=== PATIENT | male | born 1970 | race Caucasian/White ===

== ENCOUNTER 2023-10-17 17:41 | Emergency (ER) | payer OTHER, SELFPAY ==
[2023-10-17 17:50] VITALS: BP 144/89; PULSE 74; RESP 16; TEMP 36.8; O2SAT 99
[2023-10-17] MEDS: TETRACAINE HCL 0.5% OPHTH SOLN 4 ML BTL LEFT EYE (18:17)
--- NOTE | 2023-10-17 18:17 | ED.EYEPROB ---
HPI - Eye Problem General Chief complaint: Eye Problems Stated complaint: FB left eye Time Seen by Provider: 10/17/23 18:20 Source: patient and RN notes reviewed Mode of arrival: ambulatory Limitations: no limitations History of Present Illness HPI Narrative: 53-year-old male presents with concern for left eye irritation. Reports he something off a shelf and a bag of concrete powder fell and he got from his eye. He reports he washed his eye out. Reports this happened about 4.5 hours ago. He denies vision changes he reports left eye irritation MD chief complaint: eye pain Related Data Home Medications Medication Instructions Recorded Confirmed hyaluronate sodium, stabilized 88 intra-articular 10/17/23 mg/4 mL intra-articular syringe (Monovisc) Allergies Allergy/AdvReac Type Severity Reaction Status Date / Time No Known Allergies Allergy Verified 10/17/23 17:43 Review of Systems Review of Systems: CONSTITUTIONAL: Denies malaise, chills, sweats, or fever. EYES: Denies visual changes. Reports left eye redness, irritation. Denies discharge. ENT: Denies rhinorrhea, congestion, sinus pain, otalgia or sore throat. SKIN: Denies rash or itching. NEUROLOGIC: Denies numbness, weakness, or headache. PSYCHIATRIC: Denies anxiety or depression. All systems reviewed & are unremarkable except as noted in HPI and below PMFSH Past Medical History Medical History BMI 30.0-30.9,adult BMI 31.0-31.9,adult BMI 33.0-33.9,adult Hand arthritis Surgical History Surgical History History of knee surgery right knee meniscus Family History Family History Grandparent Family history of malignant neoplasm Mother Family history of diabetes mellitus in first degree relative Diabetes mellitus Father Diabetes mellitus Cerebrovascular accident Acute myocardial infarction Sibling COVID-19 Social History Social History Smoking status: Never smoker Second hand tobacco smoke exposure: Yes Alcohol intake: current Substance use: never Substance use type: does not use Lack of Transportation: No Lack of Food: Never True Current Housing: I Have Housing Concerned About Future Housing: No Difficulty Paying Gas/Electric Bills: No Difficulty Paying for Meds: No Currently Unemployed: No Education: High School Diploma/GED Difficulty w/ Childcare or Family Care: No Living arrangements: with family Occupation/Education: occupation Additional occupation/education comments: [employer] Gender identity (if verbalized by the patient): Male Comments At time of signature, agree with nursing past medical, surgical, social and family history. There is no relevant family history pertinent to the presenting complaint Exam Narrative: GENERAL: Well-appearing, well-nourished, and in no acute distress. HEAD: Normocephalic, atraumatic. EYES: PERRLA, sclera clear, and EOMI. No nystagmus. Left conjunctivae clear, sclera injected, pinpoint corneal abrasion noted upon Wood's lamp exam, see note. Upper and lower eyelid unremarkable, no periorbital edema noted ENT: Nares clear, turbinates pink, no rhinorrhea or epistaxis. Mucous membranes moist. TM pearly giron with sharp light reflex bilaterally; no tragal tenderness. NECK: Supple. CHEST: No respiratory distress. Speaks in full sentences. HEART: Regular rate and rhythm. SKIN: Warm, dry, no visible rash. NEURO: Alert and oriented x3. PSYCH: Normal mood and affect Course Course Emergency Course: Exam findings discussed with patient, due to the nature of the patient's injury I recommended he follow up with Ophthalmology particularly if his symptoms change in any way or if they are not improving. Patient is aware of diagnosis, understands and a
[2023-10-17] MEDS: FLUORESCEIN SOD 1 MG/STRIP LEFT EYE (18:18)
[2023-10-17] MEDS: DACRIOSE EYE IRRIGATION 118 ML BOTTLE LEFT EYE (18:18)
== END 2023-10-17 18:35 | disposition home or self-care (01) ==
PROVIDERS: Emergency Provider Nurse Practitioner; PCP Family Medicine
DX: S05.02XA Injury of conjunctiva and corneal abrasion without foreign body, left eye, initial encounter (principal); X58.XXXA Exposure to other specified factors, initial encounter
CPT/HCPCS: 99213; A9270; G0463

== ENCOUNTER 2025-05-26 08:22 | Emergency (ER) | payer OTHER, SELFPAY ==
[2025-05-26 08:32] VITALS: BP 137/84; PULSE 101; RESP 18; TEMP 36.9; O2SAT 97
--- NOTE | 2025-05-26 08:48 | ED.URI ---
HPI - URI/Sore Throat General Chief Complaint: Upper Respiratory Infection Stated Complaint: fever/cough/head ache Time Seen by Provider: 05/26/25 08:44 Source: patient and RN notes reviewed Mode of arrival: ambulatory Limitations: no limitations History of Present Illness HPI Narrative: 55-year-old male patient presents today complaining of cough, headache, and fever up to 101 since yesterday. Denies sore throat, ear pain, shortness of breath. He has been taking ibuprofen with some improvement. is in sick for the past week and was placed on antibiotics yesterday by PCP. Course of cefdinir also called in for patient for his symptoms. No history of asthma or COPD. Related Data Home Medications ?Medication ?Instructions ?Recorded ?Confirmed ?Last Taken ?Type cefdinir 300 mg capsule mg 05/26/25 Unknown History Allergies Allergy/AdvReac Type Severity Reaction Status Date / Time No Known Allergies Allergy Verified 05/26/25 08:33 [facility] Past Medical History Medical History BMI 31.0-31.9,adult Hand arthritis BMI 33.0-33.9,adult BMI 30.0-30.9,adult Surgical History Surgical History History of knee surgery right knee meniscus Family History Family History Grandparent Family history of malignant neoplasm Mother Family history of diabetes mellitus in first degree relative Diabetes mellitus Father Diabetes mellitus Cerebrovascular accident Acute myocardial infarction Sibling COVID-19 Social History Social History Smoking status: Never smoker Second hand tobacco smoke exposure: Yes Alcohol intake: current Substance use: never Substance use type: does not use Lack of Transportation: No Lack of Food: Never True Current Housing: I Have Housing Concerned About Future Housing: No Difficulty Paying Gas/Electric Bills: No Difficulty Paying for Meds: No Currently Unemployed: No Education: High School Diploma/GED Difficulty w/ Childcare or Family Care: No Living arrangements: with family Occupation/Education: occupation Additional occupation/education comments: [employer] Gender identity (if verbalized by the patient): Male Comments At time of signature, I have reviewed and agree with nursing past medical, surgical, social and family history unless otherwise noted. Please see nursing chart for further information. There is no relevant family history pertinent to the presenting complaint Exam Narrative: GENERAL: Mildly ill appearing, well-nourished, and in no acute distress. HEAD: Normocephalic, atraumatic. EYES: EOMI. No redness or drainage. Conjunctivae normal. ENT: Mucous membranes pink and moist. Nares clear. + rhinorrhea. TMs normal bilaterally. Throat normal. Uvula midline. NECK: Normal AROM. Supple. No lymphadenopathy. CHEST: No respiratory distress. Clear to auscultation. HEART: Regular rate and rhythm. No murmur appreciated. EXTREMITIES: Normal range of motion. No edema. SKIN: Warm, dry, no rash. Capillary refill normal. Normal skin turgor. NEURO: No focal deficits. Alert and oriented x3. Gait steady. PSYCH: Normal affect. No signs of depression or anxiety. Course Course Level of Care: Express Care Visit Vital Signs Vital signs: Vital Signs Temperature 98.5 F 05/26/25 08:32 Pulse Rate 101 H 05/26/25 08:32 Respiratory Rate 18 05/26/25 08:32 Blood Pressure 137/84 05/26/25 08:32 Pulse Oximetry 97 05/26/25 08:32 Oxygen Delivery Room Air 05/26/25 08:32 Temperature 98.5 F 05/26/25 08:32 Pulse Rate 101 H 05/26/25 08:32 Respiratory Rate 18 05/26/25 08:32 Blood Pressure 137/84 05/26/25 08:32 Pulse Oximetry 97 05/26/25 08:32 Oxygen Delivery Room Air 05/26/25 08:32 Reviewed MDM MDM Narrative Medical decision making narrative: 55-year-old male patient presents today complaining of cough, headache, and fever up to 101 since yesterday. Denies sore throat, ear pain, shortness of breath. He has been taking ibuprofen with some improvement. is in sick for the past week and was placed on antibiotics yesterday by PCP. Course of cefdinir also called in for patient for his symptoms. No history of asthma or COPD. Upon exam, patient is mildly ill appearing with rhinorrhea, exam is otherwise negative. COVID and influenza negative. Symptoms likely viral in etiology. Discussed [id number] medication use and duration of illness. No prescription medications indicated at this time. Recommend patient stop cefdinir as bacterial etiology has not been identified. Patient agrees with plan. Vital signs stable. Anticipatory guidance given. Differential Diagnosis Differential Diagnosis: COVID-19, influenza, URI Lab Data MDM Lab Attestation statement: I personally reviewed the patient's lab results. Lab results narrative: Influenza negative, COVID-19 negative Critical Care Time Critical Care Time Critical Care Time: No Discharge Plan Discharge Clinical Impression: Viral infection Patient Disposition: Home Condition: Stable Instructions: Viral Syndrome (ED) Additional Instructions: Your symptoms are likely due to a viral illness, which is not treated with antibiotics. Virus symptoms can last for up to 7-10days. Take Tylenol or ibuprofen for pain or fever. Rest and stay hydrated. Follow up with your PCP in 7 days if symptoms are not improving. Go to the ER immediately if you develop shortness of breath, difficulty swallowing, or any other concerning symptoms. Patient Language: French Prescriptions: No Action cefdinir 300 mg capsule Follow-up/Referrals: Nash Mac MD [Primary Care Provider, [facility]] Time of Disposition: 08:54
[2025-05-26 08:50] LABS: EDCOVIDSCREEN Negative (Negative); EDINFLUASCREEN Negative (Negative); EDINFLUBSCREEN Negative (Negative)
== END 2025-05-26 08:58 | disposition home or self-care (01) ==
PROVIDERS: Emergency Provider Nurse Practitioner; PCP Family Medicine
DX: B34.9 Viral infection, unspecified (principal); Z20.822 Contact with and (suspected) exposure to COVID-19
CPT/HCPCS: 87426; 87804; 99212; G0463